=== PATIENT | female | born 1940 | race Caucasian/White ===

== ENCOUNTER 2017-08-17 10:15 | Emergency (ER) | payer MEDICARE ==
[~2017-08-17] VITALS: Ht 157.5 cm; Wt 54.5 kg
[~2017-08-17 10:15] MED LIST: CIPROFLOXACN500 MG PO; DOXYCYC MONO100 M1 OR; HYDROCHLOROT12.5 M1 OR; MEDDOSEPAK PO; MULTI VIT OR; PREDNISONE20 MG OR; PREMARIN0.3 MG PO; PREMARIN0.625 MG; PROAIR HFA IN; SM ASPIRIN81 M1 OR; SYNTHROID150 MCG OR
[2017-08-17] MEDS ORDERED: PRILOSEC20 MG/CAP PO (10:30)
[2017-08-17] MEDS ORDERED: DONEPEZIL5 MG PO (10:30)
[2017-08-17 10:58] LABS: HEMATOCRIT 40.7 % (37.0-47.0); HEMOGLOBIN 13.4 g/dl (12.0-16.0); IMMATURE GRANULOCYTES 0.3 % (0.0-1.0); MEAN CELL VOLUME 92.3 fL CALC (80.0-100.0); MEAN CORPUSCULAR HGB 30.4 pG CALC (26.0-32.0); MEAN CORPUSCULAR HGB CONC 32.9 g/L CALC (32.0-36.0); NEUT# 3.98 thou/uL (2.00-7.15); RED BLOOD COUNT 4.41 mill/uL (4.20-5.60); RED CELL DISTRI WIDTH 13.5 % (11.5-15.5)
[2017-08-17 11:02] LABS: INFLUENZA A NONE DETECTED (NONE DETECT); INFLUENZA B NONE DETECTED (NONE DETECT)
[2017-08-17 11:13] LABS: ANION GAP 16 (6-22 (CALC)); BUN 14 mg/dL (8-23); BUN/CREATININE RATIO 22 (12-20 (CALC)); CARBON DIOXIDE 31 mmol/l (22-30); CHLORIDE 87 mmol/l (95-108); CREATININE 0.6 mg/dL (0.5-1.0); GFR > 60 ML/MIN (>=60 (CALC)); GFR FOR AFR.AMER. > 60 ML/MIN (>=60 (CALC)); SODIUM 130 mmol/l (137-146)
[2017-08-17] MEDS ORDERED: PREDNISONE50 MG PO (11:32)
[2017-08-17] MEDS ORDERED: ZPAK PO (11:32)
[2017-08-17 11:41] VITALS: BP 177/91
== END 2017-08-17 11:55 | disposition home or self-care (01) ==
LOC: ED 10:15
PROVIDERS: Family Medicine
DX: J40 Bronchitis, not specified as acute or chronic (principal); R06.02 Shortness of breath; J06.9 Acute upper respiratory infection, unspecified; R05 Cough

== ENCOUNTER 2017-10-11 21:18 | Emergency (ER) | payer MEDICARE, BC ==
[~2017-10-11] VITALS: Ht 157.5 cm; Wt 54.5 kg
[~2017-10-11 21:18] MED LIST changes: +DONEPEZIL5 MG PO; +PREDNISONE50 MG PO; +PRILOSEC20 MG/CAP PO; +ZPAK PO
[2017-10-11 22:06] LABS: MEAN CELL VOLUME 94.8 fL CALC (80.0-100.0); MEAN CORPUSCULAR HGB 31.6 pG CALC (26.0-32.0); MEAN CORPUSCULAR HGB CONC 33.3 g/L CALC (32.0-36.0); NEUT# 2.87 thou/uL (2.00-7.15); RED BLOOD COUNT 3.45 mill/uL (4.20-5.60); RED CELL DISTRI WIDTH 12.8 % (11.5-15.5)
[2017-10-11 22:07] LABS: HEMATOCRIT 32.7 % (37.0-47.0); HEMOGLOBIN 10.9 g/dl (12.0-16.0)
[2017-10-11 22:21] LABS: ALKALINE PHOSPHATASE 57 u/l (38-126); ANION GAP 14 (6-22 (CALC)); BILIRUBIN, TOTAL 0.5 mg/dL (0.0-1.4); BUN 10 mg/dL (8-23); BUN/CREATININE RATIO 20 (12-20 (CALC)); CARBON DIOXIDE 21 mmol/l (22-30); CHLORIDE 105 mmol/l (95-108); CREATININE 0.5 mg/dL (0.5-1.0); ETHYL ALCOHOL 195 mg/dl (0-30); GFR > 60 ML/MIN (>=60 (CALC)); GFR FOR AFR.AMER. > 60 ML/MIN (>=60 (CALC)); LIPASE 87 u/l (23-300); POTASSIUM 3.5 mmol/l (3.5-5.1); SGOT/AST 39 u/l (9-36); SGPT/ALT 32 u/l (11-66); SODIUM 136 mmol/l (137-146); TOTAL PROTEIN 5.9 g/dL (6.3-8.2)
[2017-10-11 22:22] LABS: ALBUMIN 3.1 g/dL (3.2-5.0)
[2017-10-11 22:28] LABS: PROTHROMBIN TIME 11.3 SECONDS (9.0-12.5)
[2017-10-11 22:31] LABS: MYOGLOBIN 36 ng/mL (0 - 62)
[2017-10-11 22:54] LABS: URINE BILIRUBIN - DIPSTICK NEGATIVE (NEGATIVE); URINE BLOOD DIPSTICK NEGATIVE (NEGATIVE); URINE COLOR YELLOW; URINE GLUCOSE - DIPSTICK NEGATIVE (NEGATIVE); URINE KETONE NEGATIVE (NEGATIVE); URINE LEUK ESTERASE NEGATIVE (NEGATIVE); URINE NITRITE - DIPSTICK NEGATIVE (Negative); URINE PH 6.5 (4.5-8.0); URINE PROTEIN - DIPSTICK NEGATIVE (NEG-TRACE); URINE SPECIFIC GRAVITY <=1.005; URINE UROBILINOGEN - DIPSTICK 0.2 E.U./dL (0.2)
[2017-10-11 22:55] LABS: URINE CLARITY SL CLOUDY
[2017-10-11 22:57] LABS: BARBITURATES NEGATIVE (NEGATIVE); COCAINE NEGATIVE (NEGATIVE); METHADONE NEGATIVE (NEGATIVE); OXCYCODONE NEGATIVE (NEGATIVE); TETRAHYDROCANNABIONOL NEGATIVE (NEGATIVE); TRICYLIC ANTIDEPRESSANTS NEGATIVE (NEGATIVE)
[2017-10-11 22:59] VITALS: BP 136/71
== END 2017-10-11 22:55 | disposition home or self-care (01) ==
LOC: ED 21:18
PROVIDERS: Emergency Medicine
DX: F10.129 Alcohol abuse with intoxication, unspecified (principal); F03.90 Unspecified dementia, unspecified severity, without behavioral disturbance, psychotic disturbance, mood disturbance, and anxiety